=== PATIENT | female | born 1995 | race Caucasian/White ===

== ENCOUNTER 2024-05-20 05:23 | Day surgery (SDC) | payer OTHER ==
[2024-05-20 06:06] VITALS: BMI 36.2
[2024-05-20] MEDS ORDERED: hydrALAZINE 20 MG/ML VIAL SLOW IVP PRN (07:38)
== END 2024-05-20 07:38 | disposition home or self-care (01) ==
LOC: CSHLD/OP 05:23
PROVIDERS: ATTEND Family Medicine
DX: O47.03 False labor before 37 completed weeks of gestation, third trimester (principal); Z79.82 Long term (current) use of aspirin; Z79.899 Other long term (current) drug therapy; Z3A.35 35 weeks gestation of pregnancy